=== PATIENT | female | born 1970 | race Caucasian/White ===

== ENCOUNTER → 2018-06-01 14:30 | Outpatient (CLI) | payer SELFPAY ==
[2018-06-07 14:24] LABS: HPV Reflexed? NOT INDICATED
== END ==
PROVIDERS: Visit Provider Obstetrics & Gynecology
DX: Z12.4 Encounter for screening for malignant neoplasm of cervix (principal)
CPT/HCPCS: 88175; G0145

== ENCOUNTER → 2020-12-11 | Outpatient (CLI) | payer SELFPAY ==
[2020-12-17 12:57] LABS: HPV Reflexed? NOT INDICATED
== END | disposition home or self-care (01) ==
LOC: LABSPEC 12-12 09:24
PROVIDERS: Visit Provider Obstetrics & Gynecology
DX: Z12.4 Encounter for screening for malignant neoplasm of cervix (principal)
CPT/HCPCS: 88175; G0145

== ENCOUNTER → 2024-11-14 | Outpatient (CLI) | payer OTHER, SELFPAY | END | disposition home or self-care (01) | PROVIDERS: Referring Provider Nurse Practitioner Family; Visit Provider Nurse Practitioner Family | DX: Z12.4 Encounter for screening for malignant neoplasm of cervix (principal) | CPT/HCPCS: 87624; 88175; G0145 ==

== ENCOUNTER → 2024-11-24 | Outpatient (CLI) | payer SELFPAY, OTHER ==
--- NOTE | 2024-11-24 12:14 | BI_ITS ---
PROCEDURE: SCRN MAMM (CAD)W/CYRUS BILAT REASON FOR EXAM: F, Age 54 y/o, aunts with breast cancer. Routine annual mammogram. TECHNIQUE: Bilateral screening digital breast tomosynthesis with 2D and 3D images. Computer aided detection. COMPARISON: Prior exam(s) dating back to April 22, 2021.. FINDINGS: The breasts are heterogeneously dense which may obscure small masses. Stable fat containing bilateral axillary lymph nodes. No suspicious masses, areas of developing architectural distortion, or suspicious calcifications. Stable examination. BI/SCRN MAMM (CAD)W/CYRUS BILAT IMPRESSION: BI-RADS 2: BENIGN. RECOMMEND ANNUAL MAMMOGRAPHIC SCREENING. Follow-up code: Routine Follow-up The patient will be notified of the results by letter. Reading Location: [place] [id number]
--- NOTE | 2024-11-24 12:33 | US_ITS ---
PROCEDURE: PELVIC W/ TRANSVAGINAL REASON FOR EXAM: Pelvic pain. Patient is postmenopausal. TECHNIQUE: Transabdominal and transvaginal pelvic ultrasound COMPARISON: None. FINDINGS: Measurements: Uterus: 10.1 cm x 6.8 cm x 6.6 cm. Endometrial Thickness: 6.5 mm. This is thickened. Right Ovary: Not visualized. Left Ovary: 3.2 cm x 2.4 cm x 2.1 cm. TRANSABDOMINAL: Uterus: Uterus is enlarged. Thickened endometrium. There are 2 fibroids. The larger fibroid measures 4.5 cm x 4.1 cm x 3.9 cm. Endometrium: Endometrial thickening. Right ovary: Nonvisualized. Left ovary: There is a 2.9 cm x 2.1 cm x 2.3 cm left ovarian cyst. No large pelvic mass identified. Transvaginal sonography was performed to better visualize the endometrium. TRANSVAGINAL: Uterus: Anteverted. Fibroids. Endometrium: Thickened endometrium. Right ovary: Nonvisualized. Left ovary: Left ovarian cyst. Other adnexal findings: None. Cul-de-sac: No free intraperitoneal fluid identified. No tenderness. US/Pelvic w/ Transvaginal IMPRESSION: Enlarged fibroid uterus. Thickened endometrium. Left ovarian cyst. Reading Location: [id number]
== END | disposition home or self-care (01) ==
PROVIDERS: PCP Family Medicine; Referring Provider Nurse Practitioner Family; Visit Provider Nurse Practitioner Family
DX: N94.89 Other specified conditions associated with female genital organs and menstrual cycle (principal); Z12.31 Encounter for screening mammogram for malignant neoplasm of breast
CPT/HCPCS: 76830; 76856; 77063; 77067

== ENCOUNTER 2025-01-13 11:16 | Outpatient (CLI) | payer OTHER, SELFPAY ==
--- NOTE | 2025-01-13 10:15 | EMB_PTH ---
PATIENT: YAMILET GASTELUM LOC: [facility] U#:[id number] AGE/SX: 54/F ROOM: RE01/13/[address]: Dr. Vianca Woods DO : 1970 BED: DIS: 01/13/2025 SPEC #: [id number] RECD: 01/13/25 12:55 STATUS: MIGUEL NABEEL #: [id number] RYAN: 01/13/25 10:[address]: Vianca Woods DEPT: SURGICAL PATHOLOGY RECD BY: Rocael Tate ENTERED: 01/13/25 12:56 SP TYPE: ENDOM BX/C NESS DR: Dr. Lupe Jiménez MD Tissues: A - Endometrium, NOS Procedures: Surgery Specimen Level IV HEADER OPERATION: Endometrial biopsy PRE-OP DIAGNOSIS: Endometrial thickening TISSUE SUBMITTED: A- Endometrial lining MICROSCOPIC DIAGNOSIS A. Endometrium biopsy: * Disordered proliferative endometrium (deeper sections examined). * Fragments of benign endocervical mucosa. MICROSCOPIC DESCRIPTION Slides are reviewed. GROSS DESCRIPTION A. Received in formalin in a container labeled with the patient's name, date of , and EMB are multiple wispy, red-viveros fragments of soft tissue admixed with blood and mucus measuring approximately 1.7 x 1.2 x 1.0 cm in aggregate. Submitted in toto in A1. B 01-13-2025 CPT:57851
== END 2025-01-13 23:59 | disposition home or self-care (01) ==
LOC: LABSPEC 11:16
PROVIDERS: PCP Family Medicine; Referring Provider Obstetrics & Gynecology; Visit Provider Obstetrics & Gynecology
DX: R93.89 Abnormal findings on diagnostic imaging of other specified body structures (principal)
CPT/HCPCS: 88305